=== PATIENT | male | born 1990 ===

== ENCOUNTER 2021-11-17 15:38 | Emergency (ER) | payer BC ==
[2021-11-17] MEDS ORDERED: HYDROCORTISONE30 G2 TOP (17:49)
[2021-11-17] MEDS ORDERED: PREDNISONE 20 M20 MG PO (17:49)
== END 2021-11-17 18:05 | disposition home or self-care (01) ==
LOC: ER1 15:38
DX: L50.9 Urticaria, unspecified (principal); F17.200 Nicotine dependence, unspecified, uncomplicated
CPT/HCPCS: 99282